=== PATIENT | female | born 1960 | race Caucasian/White ===

== ENCOUNTER → 2016-05-16 | Outpatient (CLI) | payer MEDICARE, MEDICAID ==
[2015-04-27 11:00] VITALS: BP 118/68
[~2016-05-16] MED LIST: ARIP15TA2 PO; ARIP30TA PO; BLAC200C PO; CELE200C PO; CRESTOR10 MG PO; ESOM40CA PO; ESTR2TAB PO; FURO-68 PO; GABA-587 PO; HYDR-2666 PO; HYDR50CA2 PO; INSU100I13 SQ; INSU100I17 SQ; IOHEXOL 180 MG/ML 10 ML VIAL. ONE; LAMO150T PO; LOSA50TA6 PO; MELA3TAB PO; METF10002 PO; METF500T4 PO; MILN50TA PO; OXYC-323 PO; POTA20TA12 PO; TOPI100T90 PO; TRAZ100T12 PO; methylPREDNISolone ACETATE 40 MG/ML VIAL. ONE; methylPREDNISolone ACETATE 80 MG/ML VIAL. ONE
--- NOTE | 2016-05-16 23:24 | PAIN ---
DATE OF SERVICE: 05/16/2016 DIAGNOSES: 1. Lumbar radiculopathy with lumbar degenerative disk disease. 2. Cervical radiculopathy with cervical degenerative disk disease. 3. Myofascial pain. HISTORY OF PRESENT ILLNESS: The patient is a 55-year-old female who returns for followup, status post lumbar epidural steroid injections x 2. The patient reports she has been doing fairly well with about 75-80% improvement with her injections, still some pain in the low back and into the bilateral lower extremities as she has had previously, more on the left side than the right, but overall not significantly worse. The patient reports that the pain is a 4 on a scale 10 today, is sharp, aching pain in the low back and left leg. The patient has also been taking hydrocodone on which she is doing well and reports good results of about 75% improvement with medications by itself without any significant side effects. The patient reports no new motor or sensory deficits, no new bowel or bladder incontinence or other complaints. The patient's old chart was reviewed as her current medication regimen and updated. Current review of systems updated today as well. PHYSICAL EXAMINATION: VITAL SIGNS: Today, the patient's blood pressure is 119/80, pulse 78, respirations 18, temperature 97.9 degrees Fahrenheit. Height is 5 feet 3 inches, weight is 158 pounds. GENERAL: The patient is awake, alert, oriented, appropriate, very pleasant demeanor. HEENT: Shows normocephalic, atraumatic. Extraocular movements are intact and symmetrical. Oral cavity shows mucous membranes are moist and pink. Dentition intact. NECK: Shows anterior throat supple. CHEST: Shows breath sounds clear to auscultation bilaterally. HEART: Shows S1 and S2 clear. ABDOMEN: Soft, nontender, nondistended. BACK: Shows spine grossly in midline. Lumbar paraspinous muscle shows some moderate tenderness to palpation bilaterally in the low lumbar distribution only of the paraspinous muscles, but only diffusely. No tenderness over the sacrum or sacroiliac regions. The patient shows good rotational motion of the lumbar spine, both laterally as well as extension and flexion without difficulty. EXTREMITIES: Lower extremities showed deep tendon reflexes 1+ in the patellar tendons. Motor exam is strong with 5/5 dorsiflexion, extension, equal and symmetrical. Options were discussed with the patient. We will proceed with a third lumbar epidural steroid injection in the series with fluoroscopic guidance. Risks were again discussed including, but not limited to bleeding, infection, possibility of epidural hematoma, subsequent neurological compromise, dural puncture, headaches, spinal cord and/or nerve damage, side effects of steroid medication and poor results regarding pain control. The patient understands and wishes to proceed. The patient will return to clinic in approximately 2 weeks for followup. She was given refill prescription for hydrocodone with instructions, side effects to be aware of as well and will follow up as scheduled. DIAGNOSIS: Lumbar radiculopathy with lumbar degenerative disk disease. PROCEDURE: Lumbar epidural steroid injection in translaminar approach at the L5-S1 level using fluoroscopic guidance under sterile prep and drape using local anesthetic. Medications injected are 120 mg of Depo-Medrol plus 10 mL of preservative-free normal saline and 2 mL of Isovue for contrast. The patient's condition at discharge is stable. The patient tolerated the procedure well, had no complications. WANDA ALEMAN MD DR: YVON/leroy JOB#: [id number] / [id number]
== END | disposition home or self-care (01) ==
LOC: PNCL 07:45
PROVIDERS: ATTEND Anesthesiology
DX: M51.16 Intervertebral disc disorders with radiculopathy, lumbar region (principal); M50.10 Cervical disc disorder with radiculopathy, unspecified cervical region; E78.00 Pure hypercholesterolemia, unspecified; I10 Essential (primary) hypertension; Z90.710 Acquired absence of both cervix and uterus; M19.90 Unspecified osteoarthritis, unspecified site; M79.7 Fibromyalgia; E11.9 Type 2 diabetes mellitus without complications; F41.9 Anxiety disorder, unspecified; F32.9 Major depressive disorder, single episode, unspecified; G62.9 Polyneuropathy, unspecified
CPT/HCPCS: 62323; J1030; J1040

== ENCOUNTER → 2016-07-15 | Outpatient (CLI) | payer MEDICAID, MEDICARE ==
[2015-04-27 11:00] VITALS: BP 118/68
[~2016-07-15] MED LIST changes: -IOHEXOL 180 MG/ML 10 ML VIAL. ONE; -methylPREDNISolone ACETATE 40 MG/ML VIAL. ONE; -methylPREDNISolone ACETATE 80 MG/ML VIAL. ONE
--- NOTE | 2016-07-15 12:55 | KCIC ---
Examination: MRI of the right knee without contrast. HISTORY History of right knee pain in the medial aspect of the level of the patella COMPARISON None available Technique: Multiplanar multisequence MR imaging of the right knee was performed without contrast Findings : The anterior cruciate ligament, posterior cruciate ligament appear intact. The medial meniscus, lateral meniscus appears intact. The extensor mechanism is intact. The medial collateral ligament is intact. The lateral collateral ligamentous complex including the fibular collateral ligament, biceps femoris tendon, popliteus tendon appear intact. There is a vertically-oriented nondisplaced fracture of the proximal tibia with the fracture line extending from the tibial spine in the knee joint extending inferiorly along the proximal tibia with comminution in the inferior aspect and extending anteriorly about the tibial tubercle on either side of the attachment of the infrapatellar tendon. Moderate amount of edema identified about the fracture site in the proximal tibia. There is questionable minimal depression of the lateral tibial plateau just adjacent to the fracture line, best visualized on series 7, image number 16. Small knee joint effusion is identified. The medial retinaculum, lateral retinaculum appears intact. There is deep fissuring of cartilage identified in the patella with small subchondral cystic changes. There is superficial fraying of cartilage identified in the medial, lateral compartments. Moderate joint space loss identified the medial compartment. Mild joint space loss identified in the lateral, patellofemoral compartment. Small osteophyte formation identified in the medial compartment. The visualized neurovascular bundle grossly appears unremarkable. IMPRESSION - Nondisplaced fracture of the proximal tibia with the fracture line extending from the tibial spine in the knee joint extending inferiorly to involve the proximal tibia with the comminuted portion of the fracture line extending on either side of the infrapatellar tendon at its attachment to the the proximal tibia.There is questionable minimal depression of the lateral tibial plateau just adjacent to the fracture line, best visualized on series 7, image number 16 - Small knee joint effusion. - Grade 3 chondromalacia patella. Grade 2 chondromalacia medial, lateral compartments. - Degenerative changes identified in the medial, lateral compartments, most in the medial compartment. Ordering physician's office nurse was called at time of dictation. Electronically signed by: Edwin Avalos (Jul 15, 2016 12:54:45)
== END | disposition home or self-care (01) ==
LOC: KCIC MRI 11:16
PROVIDERS: ATTEND Physician Assistant Surgical
DX: M25.561 Pain in right knee (principal); M17.11 Unilateral primary osteoarthritis, right knee; M22.41 Chondromalacia patellae, right knee
CPT/HCPCS: 73721

== ENCOUNTER → 2016-08-15 | Outpatient (CLI) | payer MEDICARE ==
[2015-04-27 11:00] VITALS: BP 118/68
[~2016-08-15] MED LIST changes: +METF-620 PO; -METF10002 PO
--- NOTE | 2016-08-16 01:08 | PN ---
DATE: 08/15/2016 DIAGNOSES: 1. Lumbar radiculopathy with lumbar degenerative disk disease. 2. Cervical radiculopathy with cervical degenerative disk disease. 3. Myofascial pain. HISTORY OF PRESENT ILLNESS: The patient is a 55-year-old female who returns for followup status post lumbar epidural steroid injections, most recently in May of this year. The patient also is doing well with medication management with hydrocodone 5 mg. 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 She was wearing the brace, this is off now and she is doing much better with the pain, and we have given her a bridge prescription of hydrocodone to get past the acute injury. She reports she is doing very well with this now and her pain is back to baseline and low back and left lower extremity, mostly in the lateral posterior aspect of the thigh, posterior gluteus and into the left leg anteriorly, into the lower leg posteriorly. The patient reports her pain is anywhere from a 5-9 on a scale of 10 and reports no new motor or sensory deficits ____ sharp shooting, stabbing pain in the low back, but she reports she is not quite ready for and another epidural injection yet as she is still rehabing her legs and would like to give this some more time as well. The patient reports no other complaints, no new motor or sensory deficits, no new bowel or bladder incontinence or other concerns. PHYSICAL EXAMINATION: VITAL SIGNS: Today, blood pressure is 132/78, pulse 77, respirations are 16, temperature 98.4 degrees Fahrenheit, weight is 152 pounds, and height is 5 feet 3 inches. GENERAL: The patient is awake, alert, oriented, appropriate, very pleasant demeanor. HEENT: Head shows normocephalic and atraumatic. Extraocular movements are intact, symmetrical. Oral cavity, mucous membranes are moist and pink. Dentition is intact. NECK: Shows anterior throat supple. CHEST: Shows breath sounds clear to auscultation bilaterally. HEART: Shows S1 and S2 clear. ABDOMEN: Soft, nontender, and nondistended. BACK: Shows spine grossly midline. Normal appearing thoracic kyphosis and lumbar lordotic curvature. Lumbar paraspinous musculature shows symmetrical appearance without asymmetry, on palpation shows some moderate tenderness diffusely in the mid and low lumbar distribution, but without radiation. No tenderness over the sacrum and sacroiliac regions. The patient shows good rotational motion of lumbar spine, both laterally as well as extension and flexion. Lower extremities showed deep tendon reflexes at 1+ in the patellar and tendo calcaneus tendons, some minor tenderness over the right knee and inferior aspect of the knee joint and tibia on the right, but without significant radiation or pain. Motor exam is strong with 5/5 dorsiflexion and extension bilaterally. Options were discussed with the patient and the patient's old chart was reviewed as her current medication regimen updated. Current review of systems updated today as well. We will hold on further injections at this time by her request, refill the patient's hydrocodone for a 60-day supply with instructions, side effects to be aware of, discussed. The patient will follow up in approximately 2 months or sooner if pain returns or becomes more painful with radicular qualities as she is experiencing. The patient was counseled as to activity levels as well as side effects to be aware with the medications and will follow up as scheduled. WANDA ALEMAN MD DR: YVON/leroy JOB#: [id number] / [id number]
== END | disposition home or self-care (01) ==
LOC: PNCL 07:49
PROVIDERS: ATTEND Anesthesiology
DX: M51.16 Intervertebral disc disorders with radiculopathy, lumbar region (principal); M50.10 Cervical disc disorder with radiculopathy, unspecified cervical region; M79.1 Myalgia
CPT/HCPCS: G0463

== ENCOUNTER → 2016-12-19 | Outpatient (CLI) | payer MEDICARE ==
[2015-04-27 11:00] VITALS: BP 118/68
[~2016-12-19] MED LIST changes: -ARIP15TA2 PO; +ARIP15TA3 PO; -ARIP30TA PO; +ARIP30TA4 PO; +GLIM4TAB2 PO; -HYDR-2666 PO; +HYDR-2758 PO; +IOHEXOL 180 MG/ML 10 ML VIAL. ONE; -MELA3TAB PO; +MELA3TAB2 PO; +TOPI100T8 PO; -TOPI100T90 PO; +methylPREDNISolone ACETATE 40 MG/ML VIAL. ONE; +methylPREDNISolone ACETATE 80 MG/ML VIAL. ONE
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
== END | disposition home or self-care (01) ==
LOC: PNCL 08:47
PROVIDERS: ATTEND Anesthesiology
DX: M51.16 Intervertebral disc disorders with radiculopathy, lumbar region (principal); M50.10 Cervical disc disorder with radiculopathy, unspecified cervical region; E78.00 Pure hypercholesterolemia, unspecified; I10 Essential (primary) hypertension; M19.90 Unspecified osteoarthritis, unspecified site; E11.9 Type 2 diabetes mellitus without complications; F41.9 Anxiety disorder, unspecified; F32.9 Major depressive disorder, single episode, unspecified; Z86.69 Personal history of other diseases of the nervous system and sense organs; Z90.710 Acquired absence of both cervix and uterus; Z88.0 Allergy status to penicillin
CPT/HCPCS: 62323; J1030; J1040

== ENCOUNTER → 2017-02-02 | Outpatient (CLI) | payer MEDICARE ==
[2015-04-27 11:00] VITALS: BP 118/68
[~2017-02-02] MED LIST changes: +ALPR1TAB6 PO; +ESCITALOPRAM OX20 MG PO; +GLIM2TAB2 PO; +HYDR200T5 PO; +KETO15CR2 TP; +RANI150T6 PO; +TRAZ150T49 PO
--- NOTE | 2017-02-03 05:15 | PAIN ---
DATE OF SERVICE: 02/02/2017 DIAGNOSES: Lumbar radiculopathy with lumbar degenerative disk disease. HISTORY OF PRESENT ILLNESS: The patient is a 56-year-old female who returns for followup status post lumbar epidural steroid injection x 1 on 12/19/2016. The patient did very well ____ she has had ____ about 80% improvement overall. The patient reports pain returning over the past 2 to 3 days, but that has been only very minimally and increasing; however, is becoming more bothersome across the low back and left lower extremity primarily. The patient reports it is a 9 on a scale of 10 at its worst, is a 7 at the least, and has been an 8 on a scale of 10 over the past 2 days. The patient reports it is sharp, shooting, stabbing, and constant, becoming more painful. The patient is still taking hydrocodone and reports good results about 50% improvement with that without side effects. The patient reports also she has had a recent diagnosis of lupus and she is starting some new medications for that and has some increased pain in her joints, mainly in the knees and hips as well as her shoulders and elbows and wrists, right greater than left. The patient reports otherwise no new motor or sensory deficits, no new bowel or bladder incontinence. The patient reports it awakens her from sleep at night over the past several days about 3 hours as well as she can get a sleep just repositioning, get out of bed, take pain medication and she can usually to get back to sleep. PHYSICAL EXAMINATION: VITAL SIGNS: Today, his blood pressure is 140/97, pulse 91, respirations 18, temperature 98.3 degrees Fahrenheit, height is 5 feet 3 inches, weight 169 pounds. GENERAL: The patient is awake, alert, oriented, appropriate, very pleasant demeanor. HEENT: Shows normocephalic, atraumatic. Extraocular movements are intact and symmetrical. Oral cavity shows mucous membranes moist and pink. Dentition is intact. NECK: Shows anterior throat supple without palpable lymphadenopathy noted. Swallow reflex is symmetrical. CHEST: Shows normal with inspection. Breath sounds clear to auscultation bilaterally. HEART: Shows S1 and S2 clear. No murmurs auscultated. ABDOMEN: Soft, nontender, nondistended. No palpable organomegaly is noted. BACK: Shows spine grossly midline. Lumbar paraspinous musculature shows symmetrical and normal lordotic curvature with palpation shows some moderate tenderness with palpation bilaterally in the lumbar paraspinous musculature diffusely throughout the upper, middle and lower distribution, right equal to left. The patient shows good rotation and motion both laterally as well as extension and flexion without difficulty. EXTREMITIES: The patient's lower extremities showed deep tendon reflexes at 1+ in the patellar and tendo calcaneus tendons are equal. Motor exam is strong with 5/5 dorsiflexion, extension, quadriceps and hamstring flexion symmetrical. Peripheral pulses are 1+. No peripheral edema is noted in lower extremities bilaterally. Options were discussed with the patient. The patient's old chart was reviewed as her current medication regimen and updated. Current review of systems is updated today as well. We will proceed with a second in this series of lumbar epidural steroid injection today with fluoroscopic guidance. Risks were again discussed including, but not limited to bleeding, infection, possibility of epidural hematoma, subsequent neurological compromise, dural puncture, headaches, spinal cord and/or nerve damage, side effects of steroid medication and poor results regarding pain control. The patient understands and wished to proceed. The patient will return to the clinic in approximately 2 weeks for followup, was counseled on return appointment, activity level and side effects to be aware of. DIAGNOSIS: Lumbar radiculopathy with lumbar degenerative disk disease. PROCEDURE: Lumbar epidural steroid injection translaminar approach at the L5-S1 level using C-arm fluoroscopic guidance under sterile prep and drape using local anesthetic. Medication injected is a total of 120 mg Depo-Medrol plus 10 mL of preservative-free normal saline, 2 mL of Isovue for contrast. CONDITION AT DISCHARGE: Stable. The patient tolerated the procedure well, had no complications. WANDA ALEMAN MD DR: YVON/leroy JOB#: [id number] / [id number]
== END | disposition home or self-care (01) ==
LOC: PNCL 10:08
PROVIDERS: ATTEND Anesthesiology
DX: M51.16 Intervertebral disc disorders with radiculopathy, lumbar region (principal); E11.42 Type 2 diabetes mellitus with diabetic polyneuropathy; E78.00 Pure hypercholesterolemia, unspecified; I10 Essential (primary) hypertension; F41.9 Anxiety disorder, unspecified; F32.9 Major depressive disorder, single episode, unspecified; M19.91 Primary osteoarthritis, unspecified site; Z86.69 Personal history of other diseases of the nervous system and sense organs; Z88.0 Allergy status to penicillin; Z90.710 Acquired absence of both cervix and uterus; Z83.3 Family history of diabetes mellitus
CPT/HCPCS: 62323; J1030; J1040

== ENCOUNTER → 2017-04-07 | Outpatient (CLI) | payer MEDICARE ==
[2015-04-27 11:00] VITALS: BP 118/68
[~2017-04-07] MED LIST changes: -LAMO150T PO; +LAMO150T2 PO
--- NOTE | 2017-04-07 21:39 | PAIN ---
DATE OF SERVICE: 04/07/2017 DIAGNOSES: 1. Lumbar radiculopathy with lumbar degenerative disk disease. 2. Cervical radiculopathy with cervical degenerative disk disease. 3. Myofascial pain. HISTORY OF PRESENT ILLNESS: The patient is a 56-year-old female who returns for a followup status post lumbar epidural steroid injection x 2, last seen on 02/02/2017. The patient did very well after the injection about 70-75% improvement in the low back and bilateral lower extremity. The patient reports now it is increasing in the left leg; radiating mostly posteriorly in the posterior gluteus, posterior calf and thigh on the left side, becoming more noticeable with time; worse with standing, walking, changing positions; better with lying down. It does not awaken her from sleep at night, but with standing, walking, changing positions, does become much more noticeable. The patient reports is a 9 on a scale of 10 at its worst, 8 on average, is a 7 at its least and is a 7 today. The patient reports a sharp, shooting, stabbing with radiating pain that is severe, becoming more constant, but still off and on in the anterior lateral thigh on the left side. The patient reports no new motor or sensory deficits, no new bowel or bladder incontinence or other complaints. PHYSICAL EXAMINATION: VITAL SIGNS: Today, the patient's blood pressure is 140/76, pulse 101, respirations 18, temperature is 97.8 degrees Fahrenheit. Height is 5 feet 3 inches, weight is 174 pounds. GENERAL: The patient is awake, alert, oriented, appropriate, very pleasant demeanor. HEENT: Shows normocephalic, atraumatic. Extraocular movements are intact, symmetrical. Oral cavity shows mucous membranes are moist and pink. Dentition is intact. NECK: Shows anterior throat supple without palpable lymphadenopathy noted. Swallow reflex is symmetrical. CHEST: Shows normal on inspection. Breath sounds are clear to auscultation bilaterally. HEART: Shows S1, S2 clear. ABDOMEN: Soft, nontender, nondistended. No palpable organomegaly is noted. No rebound or guarding demonstrated. MUSCULOSKELETAL: The patient's back shows spine grossly in the midline, normal-appearing thoracic kyphosis and lumbar lordotic curvature. Lumbar paraspinous muscle shows symmetrical on inspection, with palpation shows moderate tenderness with palpation bilaterally, but only diffusely in the low lumbar distribution without radiation. The patient has full rotational motion both laterally as well as extension and flexion. Lumbar spine without pain reported. Lower extremities show deep tendon reflexes 1+ in the patellar and tendo-calcaneus tendons and are equal. Motor exam is strong with 5/5 dorsiflexion and extension. Peripheral pulses are 1+ posterior tibial and dorsalis pedis pulses. No peripheral edema is noted bilaterally. PLAN: Options were discussed with the patient. The patient's old chart was reviewed as her current medication regimen and updated. Current review of systems updated today as well. We will proceed with a third in the series lumbar epidural steroid injection with fluoroscopic guidance. Risks were again discussed including, but not limited to bleeding, infection, possibility of epidural hematoma and subsequent neurological compromise, dural puncture headaches, spinal cord and/or nerve damage, side effects of steroid medication and poor results regarding pain control. The patient understands and wished to proceed. The patient to return to the clinic in approximately 2 weeks for a followup, was counseled on return appointment, activity level and side effects to be aware of. DIAGNOSIS: Lumbar radiculopathy with lumbar degenerative disk disease. PROCEDURE: Lumbar epidural steroid injection, translaminar approach, L5-S1 level using C-arm fluoroscopic guidance under sterile prep and drape using local anesthetic. MEDICATIONS INJECTED: A total of 120 mg of Depo-Medrol plus 10 mL of preservative-free normal saline and 2 mL of Isovue for contrast. CONDITION AT DISCHARGE: Stable. The patient tolerated the procedure well, had no complications. WANDA ALEMAN MD DR: YVON/leroy JOB#: [id number] / [id number]
== END | disposition home or self-care (01) ==
LOC: PNCL 10:12
PROVIDERS: ATTEND Anesthesiology
DX: M51.16 Intervertebral disc disorders with radiculopathy, lumbar region (principal); M50.10 Cervical disc disorder with radiculopathy, unspecified cervical region; E11.40 Type 2 diabetes mellitus with diabetic neuropathy, unspecified; E78.00 Pure hypercholesterolemia, unspecified; I10 Essential (primary) hypertension; F41.9 Anxiety disorder, unspecified; F32.9 Major depressive disorder, single episode, unspecified; Z88.0 Allergy status to penicillin; Z86.69 Personal history of other diseases of the nervous system and sense organs
CPT/HCPCS: 62323; J1030; J1040

== ENCOUNTER → 2017-06-28 | Outpatient (CLI) | payer MEDICARE | END | disposition home or self-care (01) | LOC: PNCL 08:48 | DX: M51.16 Intervertebral disc disorders with radiculopathy, lumbar region (principal); M50.30 Other cervical disc degeneration, unspecified cervical region | CPT/HCPCS: G0463 ==